=== PATIENT | female | born 1995 ===

== ENCOUNTER 2017-08-18 17:27 | Emergency (ER) | payer MEDICAID ==
[2017-08-18 17:55] VITALS: RESP 18
[2017-08-18 19:17] LABS: BASO # 0.02 K/mm3 (0.0-2.0); BASO % 0.1 % (0.0-3.0); EOS # 0.1 (0.0-0.7); EOS % 0.7 % (1.5-5.0); GRAN # 13.11 (1.4-6.5); GRAN % 79.6 % (50.0-68.0); HEMOGLOBIN 13.7 g/dL (12.0-16.0); LYMPH # 2.3 (1.2-3.4); LYMPH % 13.7 % (22.0-35.0); MEAN CELL VOLUME 81.2 fl (80.0-105.0); MEAN CORPUSCULAR HEMOGLOBIN 28.2 pg (25.0-35.0); MEAN CORPUSCULAR HGB CONC 34.8 g/dl (31.0-37.0); MEAN PLATELET VOLUME 10.2 fl (7.0-11.0); MONO % 5.9 % (1.0-6.0); RBC 4.85 10^6/uL (3.5-6.1); RED CELL DISTRIBUTION WIDTH 13.9 % (11.5-14.5); WHITE BLOOD COUNT 16.5 10^3/ul (4.5-11.0)
[2017-08-18 19:18] LABS: URINE BILIRUBIN NEGATIVE (NEGATIVE); URINE BLOOD SMALL (NEGATIVE); URINE GLUCOSE (UA) NEGATIVE (NEGATIVE); URINE LEUKOCYTE ESTERASE NEGATIVE Leu/uL (NEGATIVE); URINE PROTEIN NEGATIVE mg/dL (<30 mg/dL); URINE UROBILINOGEN 0.2 E.U./dL (<1 E.U./dL)
[2017-08-18 19:19] LABS: URINE APPEARANCE CLEAR (CLEAR); URINE COLOR YELLOW (YELLOW)
[2017-08-18 19:26] LABS: ALB/GLOB RATIO 1.1 (1.1-1.8); ALBUMIN 4.3 g/dL (3.0-4.8); ALT/SGPT 29 U/L (7-56); AST/SGOT 25 U/L (14-36); BLOOD UREA NITROGEN 7 mg/dL (7-21); CALCIUM 9.2 mg/dL (8.4-10.5); GFR AFRICAN-AMERICAN > 60; GFR NON-AFRICAN AMERICAN > 60
[2017-08-18 19:33] LABS: INR 1.17 (0.93-1.08); PARTIAL THROMBOPLASTIN TIME 29.9 Seconds (25.1-36.5); PROTHROMBIN TIME 13.4 SECONDS (9.4-12.5)
[2017-08-18 19:39] LABS: URINE BACTERIA FEW (NEG); URINE EPITHELIAL CELLS 0 - 2 /hpf (0-5)
--- NOTE | 2017-08-18 22:20 | ED PDOC ---
Arrival/HPI - General Chief Complaint: Dizziness/Lightheaded Time Seen by Provider: 08/18/17 18:14 Historian: Patient, Family - History of Present Illness Narrative History of Present Illness (Text): 22 y/o woman w/ no sig endorsed pmhx presents c/o 2-3 day sof increased dizziness/ occasional pressure like frontal headache/ malaise but denying URI like symptoms nor any dysuria/ nor n/v/diarrhea. + sick contacts with her baby niece whom reportedly suffreed URI sympotms the prior week. She denies nay menongococcal rash/nuchal rigidity nor history of menometrhagia/ nor focal neurological defeicits. 08/18/17 22:21 Time/Duration: < week Symptom Onset: Gradual Symptom Course: Unchanged Quality: Aching Past Medical History - Provider Review Nursing Documentation Reviewed: Yes - Cardiac Hx Cardiac Disorders: No - Pulmonary Hx Respiratory Disorders: Yes Hx Asthma: Yes - Neurological Hx Neurological Disorder: No - HEENT Hx HEENT Disorder: No - Renal Hx Renal Disorder: No - Endocrine/Metabolic Hx Endocrine Disorders: No - Hematological/Oncological Hx Blood Disorders: No - Integumentary Hx Dermatological Disorder: No - Musculoskeletal/Rheumatological Hx Musculoskeletal Disorders: No - Gastrointestinal Hx Gastrointestinal Disorders: No - Genitourinary/Gynecological Hx Genitourinary Disorders: No - Psychiatric Hx Psychophysiologic Disorder: No Hx Substance Use: No - Anesthesia Hx Anesthesia: No Family/Social History - Physician Review Nursing Documentation Reviewed: Yes Family/Social History: No Known Family HX Smoking Status: Light Smoker < 10 Cigarettes Daily Hx Alcohol Use: Yes Frequency of alcohol use: Socially Hx Substance Use: No Allergies/Home Meds Allergies/Adverse Reactions: Allergies amoxicillin Allergy (Verified 08/18/17 17:48) ANAPHYLAXIS Home Medications: Home Meds Medication Instructions Recorded Confirmed Albuterol Sulfate [Ventolin Hfa] 1 puff IH Q4 PRN 08/18/17 08/18/17 Review of Systems - Physician Review All systems were reviewed & negative as marked: Yes - Review of Systems Constitutional: Fatigue Eyes: Normal ENT: Normal Respiratory: Normal Cardiovascular: Normal Gastrointestinal: Normal Genitourinary Female: Normal Musculoskeletal: Normal Skin: Normal Neurological: Headache, Dizziness Endocrine: Normal Hemo/Lymphatic: Normal Psychiatric: Normal Physical Exam Vital Signs Reviewed: Yes Vital Signs Temp Pulse Resp BP Pulse Ox 08/18/17 17:50 100.2 F H 137 H 18 125/80 100 Temperature: Febrile Blood Pressure: Normal Pulse: Regular Respiratory Rate: Normal Appearance: Positive for: Well-Appearing, Non-Toxic, Comfortable Pain Distress: None Mental Status: Positive for: Alert and Oriented X 3 - Systems Exam Head: Present: Atraumatic, Normocephalic Pupils: Present: PERRL Extroacular Muscles: Present: EOMI Conjunctiva: Present: Normal Mouth: Present: Moist Mucous Membranes Neck: Present: Normal Range of Motion Respiratory/Chest: Present: Clear to Auscultation, Good Air Exchange. No: Respiratory Distress, Accessory Muscle Use Cardiovascular: Present: Regular Rate and Rhythm, Normal S1, S2. No: Murmurs Abdomen: No: Tenderness, Distention, Peritoneal Signs Back: Present: Normal Inspection Upper Extremity: Present: Normal Inspection. No: Cyanosis, Edema Lower Extremity: Present: Normal Inspection. No: Edema Neurological: Present: GCS=15, CN II-XII Intact, Speech Normal, Motor Func Grossly Intact, Normal Sensory Function, Normal Cerebellar Funct, Norm Deep Tendon Reflexes, Gait Normal, Memory Normal, Other (meningeal sign (-) ) Skin: Present: Warm, Dry, Normal Color. No: Rashes Psychiatric: Present: Alert, Oriented x 3, Normal Insight, Normal Concentration Medical Decision Making - Lab Interpretations Lab Results: 08/18/17 19:10 08/18/17 19:10 Lab Results 08/18/17 21:06: Influenza Typ A,B (EIA) Negative for flu a/b 08/18/17 19:10: Sodium 139, Potassium 3.7, Chloride 104, Carbon Dioxide 22, Anion Gap 17, BUN 7, Creatinine 0.5 L, Est GFR ( Amer) > 60, Est GFR (Non -Af Amer) > 60, Random Glucose 92, Calcium 9.2, Total Bilirubin 0.6, AST 25, ALT 29, Alkaline Phosphatase 94, Total Protein 8.3, Albumin 4.3, Globulin 4.0, Albumin/Globulin Ratio 1.1 08/18/17 19:10: PT 13.4 H, INR 1.17 H, APTT 29.9 08/18/17 19:10: WBC 16.5 H, RBC 4.85, Hgb 13.7, Hct 39.4, MCV 81.2, MCH 28.2, MCHC 34.8, RDW 13.9, Plt Count 239, MPV 10.2, Gran % 79.6 H, Lymph % (Auto) 13.7 L, Waller % (Auto) 5.9, Eos % (Auto) 0.7 L, Baso % (Auto) 0.1, Gran # 13.11 H , Lymph # (Auto) 2.3, Waller # (Auto) 1.0 H, Eos # (Auto) 0.1, Baso # (Auto) 0.02 08/18/17 18:40: Urine Color Yellow, Urine Appearance Clear, Urine pH 6.0, Ur Specific Bode[place] >= 1.030, Urine Protein Negative, Urine Glucose (UA) Negative, Urine Ketones Negative, Urine Blood Small H, Urine Nitrate Negative, Urine Bilirubin Negative, Urine Urobilinogen 0.2, Ur Leukocyte Esterase Negative, Urine RBC 10 - 15, Urine WBC 1 - 3, Ur Epithelial Cells 0 - 2, Urine Bacteria Few, Urine Other Mucus - RAD Interpretation Radiology Orders: 08/18/17 18:14 CHEST PORTABLE [RAD] Stat - Medication Orders Current Medication Orders: Discontinued Medications Acetaminophen (Tylenol 325mg Tab) 975 mg PO STAT STA Stop: 08/18/17 18:18 Last Admin: 08/18/17 18:32 Dose: 975 mg MAR Pain/Vitals Document 08/18/17 18:32 LA (Rec: 08/18/17 18:35 LA [id number]) Pain Reassessment Is This A Pain ReAssessment? No Sleep Is patient sleeping during reassessment? No Presence of Pain Presence of Pain Yes Pain Scale Used Pain Scale Used Numeric Location Pain Location Body Equalizer Operator Description Acute Intensity 6 Scale Used Numeric Lactated Ringer's 2,000 ml/ IV (SUPPLIES) 2,000 mls @ 5,388.66 mls/hr IV ONCE ONE PRN Reason: 60 ML/KG/HR Stop: 08/18/17 18:15 Last Admin: 08/18/17 18:40 Dose: 5,388.66 mls/hr eMAR Start Stop Document 08/18/17 18:40 LA (Rec: 08/18/17 18:41 LA [id number]) Intravenous Solution Start Date 08/18/17 Start Time 18:40 End Date 08/18/17 Ketorolac Tromethamine (Toradol) 15 mg IVP STAT STA Stop: 08/18/17 22:13 Disposition/Present on Arrival - Present on Arrival Any Indicators Present on Arrival: No History of DVT/PE: No History of Uncontrolled Diabetes: No Urinary Catheter: No History of Decub. Ulcer: No History Surgical Site Infection Following: None - Disposition Have Diagnosis and Disposition been Completed?: Yes Diagnosis: Viral syndrome, Headache Disposition: HOME/ ROUTINE Disposition Time: 22:31 Patient Plan: Discharge Condition: GOOD Discharge Instructions (ExitCare): Tension Headache, Viral Syndrome (DC) Print Language: ARMENIAN Additional Instructions: You have been diagnosed with a viral syndrome in light if niecy ercent sick contact with your sister's child. Please take the motrin alternating with tylenol for you rheadahce. DRink 2.5to 3.5 L of ater daily in order to avoid furtehr dizzienss and help with headache relief. Return f you begin suffering more romulo 3 days of fever. Prescriptions: Acetaminophen [Tylenol] 650 mg PO Q6 PRN #50 capsule PRN Reason: Fever >100.4 F Fluticasone Nasal [Flonase] 0.05 mg NS Q8 PRN 3 Days spr PRN Reason: Cough And Congestion Ibuprofen [Motrin Tab] 600 mg PO Q6 PRN #40 tab PRN Reason: Fever >100.4 F Referrals: PCP,NO [Primary Care Provider] - Follow up with primary Forms: [employer] (Niuean), WORK NOTE
[2017-08-19 02:17] VITALS: O2SAT 99
[2017-08-19 02:23] VITALS: BP 124/78; PULSE 102; TEMP 99.1
--- NOTE | 2017-08-19 08:44 | RAD ---
HISTORY: Sepsis Patient COMPARISON: No prior. FINDINGS: LUNGS: The lungs are well inflated and clear. PLEURA: No significant pleural effusion identified, no pneumothorax apparent. CARDIOVASCULAR: Normal. OSSEOUS STRUCTURES: No significant abnormalities. VISUALIZED UPPER ABDOMEN: Normal. OTHER FINDINGS: None. IMPRESSION: No active pulmonary disease.
--- NOTE | 2017-08-19 19:04 | CARD ---
APPROVED REPORT EKG Measurement Heart [id number] <Conclusion> Sinus tachycardia Otherwise normal ECG
== END 2017-08-18 22:50 | disposition home or self-care (01) ==
LOC: UNMERGE 17:27 → ED 17:27 → MERGE 17:27 → EDUNIT# 17:27 → ED 22:50
DX: B34.9 Viral infection, unspecified (principal); R51 Headache; F17.210 Nicotine dependence, cigarettes, uncomplicated
CPT/HCPCS: 71045; 80053; 81001; 85025; 85610; 85730; 87040; 87086; 87804; 93005; 96374; 99285; J1885; J7120

== ENCOUNTER 2017-12-23 23:06 | Emergency (ER) | payer SELFPAY ==
[2017-12-23 23:16] VITALS: BMI 39.2
[2017-12-23 23:18] VITALS: TEMP 98.2
--- NOTE | 2017-12-24 02:17 | ED PDOC ---
Arrival/HPI - General Chief Complaint: Upper Extremity Problem/Injury Time Seen by Provider: 12/24/17 00:52 Historian: Patient - History of Present Illness Narrative History of Present Illness (Text): 12/24/17 02:13 22-year-old female presents today with left wrist pain. Patient states prior to arrival she developed a shooting pain in the left wrist radiating to the left elbow. Patient denies any trauma or injury. Patient states if she holds her arm at rest she has no pain but if she turns the wrist she develops a shooting sensation in the arm. She denies any pain in the upper extremity. No medications were taken for pain at home. Patient denies numbness weakness or tingling in the extremity. No chest pain or shortness of breath. No other complaints Past Medical History - Provider Review Nursing Documentation Reviewed: Yes - Travel History Have you recently traveled outside [place] w/in the past 3 mons?: No - Infectious Disease Hx of Infectious Diseases: None - Cardiac Hx Cardiac Disorders: No - Pulmonary Hx Respiratory Disorders: Yes Hx Asthma: Yes - Neurological Hx Neurological Disorder: No - HEENT Hx HEENT Disorder: No - Renal Hx Renal Disorder: No - Endocrine/Metabolic Hx Endocrine Disorders: No - Hematological/Oncological Hx Blood Disorders: No - Integumentary Hx Dermatological Disorder: No - Musculoskeletal/Rheumatological Hx Musculoskeletal Disorders: No - Gastrointestinal Hx Gastrointestinal Disorders: No - Genitourinary/Gynecological Hx Genitourinary Disorders: No - Psychiatric Hx Psychophysiologic Disorder: No Hx Substance Use: No - Anesthesia Hx Anesthesia: No - Suicidal Assessment Feels Threatened In Home Enviroment: No Family/Social History - Physician Review Nursing Documentation Reviewed: Yes Family/Social History: Unknown Family HX Smoking Status: Light Smoker < 10 Cigarettes Daily Hx Alcohol Use: Yes Hx Substance Use: No Allergies/Home Meds Allergies/Adverse Reactions: Allergies amoxicillin Allergy (Verified 12/24/17 01:24) ANAPHYLAXIS penicillin G Allergy (Verified 12/23/17 23:16) ANAPHYLAXIS Home Medications: Home Meds Medication Instructions Recorded Confirmed Albuterol Sulfate [Albuterol Hfa] 0.09 mg IH Q6 PRN 02/20/15 01/14/16 DiphenhydrAMINE [Benadryl] 25 mg PO Q4H PRN 01/14/16 01/14/16 Diphenhydramine HCl [Anti-Itch] 1 applic TOP DAILY 01/14/16 01/14/16 Albuterol Sulfate [Ventolin Hfa] 1 puff IH Q4 PRN 08/18/17 08/18/17 Review of Systems - Review of Systems Constitutional: absent: Fatigue, Fevers Respiratory: absent: SOB, Cough Cardiovascular: absent: Chest Pain, Palpitations Gastrointestinal: absent: Abdominal Pain, Nausea, Vomiting Musculoskeletal: Arthralgias (left wrist pain/forearm pain) Psychiatric: absent: Anxiety, Depression Physical Exam Vital Signs Reviewed: Yes Vital Signs Temp Pulse Resp BP Pulse Ox 12/23/17 23:17 98.2 F 86 18 99/67 L 99 Temperature: Afebrile Blood Pressure: Normal Pulse: Regular Respiratory Rate: Normal Appearance: Positive for: Well-Appearing, Non-Toxic, Comfortable Pain Distress: None Mental Status: Positive for: Alert and Oriented X 3 - Systems Exam Head: Present: Atraumatic Mouth: Present: Moist Mucous Membranes Neck: Present: Normal Range of Motion Respiratory/Chest: Present: Clear to Auscultation, Good Air Exchange. No: Respiratory Distress, Accessory Muscle Use Cardiovascular: Present: Regular Rate and Rhythm, Normal S1, S2. No: Murmurs Upper Extremity: Present: Normal Inspection, Normal ROM, NORMAL PULSES, Tenderness (+ ttp over wrist and forearm; no edema, no erythema; no ecchymosis. ), Neurovascularly Intact, Capillary Refill < 2s. No: Cyanosis, Edema, Swelling , Erythema Neurological: Present: GCS=15, Speech Normal Skin: Present: Warm, Dry, Normal Color. No: Rashes Psychiatric: Present: Alert, Oriented x 3 Medical Decision Making ED Course and Treatment: 12/24/17 02:18 Patient nontoxic well-appearing in no distress with stable vital signs X-rays of the left wrist; no fracture xrays of the left forearm; no fracture duplex of left upper arm; no dvt pt refused toradol. motrin given po Patient given sissy wrap; I discussed all results with patient advised to followup with the orthopedist for the next 2 days. Return if symptoms worsen persist or new symptoms develop Patient verbalizes understanding of discharge instructions and need for immediate followup. all aspects of this case were discussed the attending of record. Impression: wrist pain, arm pain Motrin every 6 hours as needed for pain Rest, ice, compression, elevation Followup with the orthopedist within the next 2 days Followup with primary care physician within the next 2 days Return if any other concerning symptoms develop - RAD Interpretation Radiology Orders: 12/24/17 00:52 FOREARM LEFT [RAD] Stat WRIST, LEFT 3 VIEWS [RAD] Stat DUPLEX UPPER EXTRM VEIN LEFT [US] Stat - Medication Orders Current Medication Orders: Discontinued Medications Ketorolac Tromethamine (Toradol) 60 mg IM STAT STA Stop: 12/24/17 01:22 Last Admin: 12/24/17 01:30 Dose: Not Given Non-Admin Reason: Patient Refused Disposition/Present on Arrival - Present on Arrival Any Indicators Present on Arrival: No History of DVT/PE: No History of Uncontrolled Diabetes: No Urinary Catheter: No History of Decub. Ulcer: No History Surgical Site Infection Following: None - Disposition Have Diagnosis and Disposition been Completed?: Yes Diagnosis: Wrist pain, Arm pain Disposition: HOME/ ROUTINE Disposition Time: 02:12 Patient Plan: Discharge Condition: GOOD Discharge Instructions (ExitCare): Muscle and Bone Pain (DC) Additional Instructions: Motrin every 6 hours as needed for pain Rest, ice, compression, elevation Followup with the orthopedist within the next 2 days Followup with primary care physician within the next 2 days Return if any other concerning symptoms develop Referrals: Ruthy Kendrick MD [Staff Provider] - Follow up with primary [facility] [Outside] - Follow up with primary [facility] [Outside] - Follow up with primary Cici Danielson MD [Medical Doctor] - Follow up with primary Forms: [email or web address] (Chinese), WORK NOTE
[2017-12-24 02:23] VITALS: BP 102/68; PULSE 68; RESP 17; O2SAT 100
--- NOTE | 2017-12-24 11:47 | RAD ---
Date of service: 12/24/2017 PROCEDURE: Left Wrist Radiographs. HISTORY: left wrist pain COMPARISON: None. FINDINGS: BONES: Normal. No fracture. JOINTS: Normal. No dislocation. SOFT TISSUES: Normal. OTHER FINDINGS: None. IMPRESSION: Normal left wrist radiographs.
--- NOTE | 2017-12-24 11:47 | RAD ---
Date of service: 12/24/2017 PROCEDURE: Radiographs of the Left Forearm HISTORY: left forearm pain COMPARISON: None available. TECHNIQUE: Frontal and lateral views obtained. FINDINGS: BONES: No fracture or destructive lesion. JOINT SPACES: Unremarkable. OTHER FINDINGS: None. IMPRESSION: Unremarkable radiographs of the left forearm.
--- NOTE | 2017-12-24 19:05 | US ---
PROCEDURE: Left upper extremity venous ultrasound HISTORY: Arm pain and swelling. Evaluate for deep venous thrombosis. PHYSICIAN(S): Ryder Plunkett MD. FINDINGS: The visualized leftinternal jugular vein is sonographically normal and compressible. No evidence of obstruction or thrombus is seen. The visualized segments of the left subclavian vein are patent with normal waveforms. No sonographic evidence of obstruction or thrombosis is seen. The visualized deep venous system of the proximal leftupper extremity is sonographically normal and compressible. IMPRESSION: 1. No sonographic evidence for deep venous thrombosis in the visualized segments of the left upper extremity.
== END 2017-12-24 02:18 | disposition home or self-care (01) ==
LOC: ED 23:06
DX: M25.532 Pain in left wrist (principal); M79.602 Pain in left arm; F17.210 Nicotine dependence, cigarettes, uncomplicated

== ENCOUNTER 2018-07-08 21:10 | Emergency (ER) | payer SELFPAY ==
[2018-07-08 21:16] VITALS: BMI 38.0
[2018-07-08 21:19] VITALS: TEMP 98.3
[2018-07-08] MEDS ORDERED: Sodium Chloride 0.9% 1,000 ML IV STA (22:41)
[2018-07-08 22:48] LABS: BASO # 0.02 K/mm3 (0.0-2.0); BASO % 0.3 % (0.0-3.0); EOS # 0.3 (0.0-0.7); EOS % 3.7 % (1.5-5.0); HEMOGLOBIN 13.8 g/dL (12.0-16.0); LYMPH # 2.4 (1.2-3.4); LYMPH % 34.3 % (22.0-35.0); MEAN CELL VOLUME 81.7 fl (80.0-105.0); MEAN CORPUSCULAR HGB CONC 34.3 g/dl (31.0-37.0); MEAN PLATELET VOLUME 11.2 fl (7.0-11.0); MONO # 0.6 (0.1-0.6); MONO % 8.8 % (1.0-6.0); RBC 4.92 10^6/uL (3.5-6.1); RED CELL DISTRIBUTION WIDTH 13.5 % (11.5-14.5); WHITE BLOOD COUNT 7.1 10^3/uL (4.5-11.0)
--- NOTE | 2018-07-08 22:49 | ED PDOC ---
Arrival/HPI - General Chief Complaint: Shortness Of Breath Time Seen by Provider: 07/08/18 21:57 Historian: Patient - History of Present Illness Narrative History of Present Illness (Text): 07/08/18 22:45 23 F with pmh of Asthma presents with cc of chest tightness worse w/cough and sob since yesterday. Patient reports that she used her asthma pump today but failed to relieve her chest tightness. Patient also complains of runny nose and body aches. Patient denies any fevers, chills, headache, dizziness, dyspnea on exertion, abdominal pain, nausea, vomiting, diarrhea, back pain, neck pain, or any other complaint. 07/10/18 21:21 Time/Duration: 24 hours Symptom Onset: Sudden Symptom Course: Unchanged Activities at Onset: Light Context: Home Past Medical History - Provider Review Nursing Documentation Reviewed: Yes - Infectious Disease Hx of Infectious Diseases: None - Cardiac Hx Cardiac Disorders: No - Pulmonary Hx Respiratory Disorders: Yes Hx Asthma: Yes - Neurological Hx Neurological Disorder: No - HEENT Hx HEENT Disorder: No - Renal Hx Renal Disorder: No - Endocrine/Metabolic Hx Endocrine Disorders: No - Hematological/Oncological Hx Blood Disorders: No - Integumentary Hx Dermatological Disorder: No - Musculoskeletal/Rheumatological Hx Musculoskeletal Disorders: No - Gastrointestinal Hx Gastrointestinal Disorders: No - Genitourinary/Gynecological Hx Genitourinary Disorders: No - Psychiatric Hx Psychophysiologic Disorder: No Hx Substance Use: No - Anesthesia Hx Anesthesia: No - Suicidal Assessment Feels Threatened In Home Enviroment: No Family/Social History - Physician Review Nursing Documentation Reviewed: Yes Family/Social History: No Known Family HX Smoking Status: Light Smoker < 10 Cigarettes Daily Hx Alcohol Use: Yes Hx Substance Use: No Allergies/Home Meds Allergies/Adverse Reactions: Allergies amoxicillin Allergy (Verified 07/08/18 21:16) ANAPHYLAXIS penicillin G Allergy (Verified 07/08/18 21:16) ANAPHYLAXIS Home Medications: Home Meds Medication Instructions Recorded Confirmed Albuterol Sulfate [Albuterol Hfa] 0.09 mg IH Q6 PRN 02/20/15 07/08/18 Albuterol Sulfate [Ventolin Hfa] 1 puff IH Q4 PRN 08/18/17 07/08/18 Review of Systems - Physician Review All systems were reviewed & negative as marked: Yes - Review of Systems Constitutional: Normal Eyes: Normal ENT: Rhinorrhea Respiratory: Cough. absent: Wheezing Cardiovascular: Chest Pain Gastrointestinal: Normal Genitourinary Female: Normal Musculoskeletal: Myalgias Skin: Normal Neurological: Normal Endocrine: Normal Hemo/Lymphatic: Normal Psychiatric: Normal Physical Exam - Physical Exam Narrative Physical Exam (Text): 07/08/18 22:55 Gen: VS reviewed, alert, well developed, well nourished, nontoxic, mild distress Eye: EOMI, PERRL ENT: Post nasal drip Neck: no JVD, supple, no adenopathy CV: Rapid heart rate no rubs, no murmur, S1, S2 Pulm: no distress, clear to auscultation, no wheeze, no rhonchi, breath sounds equal, no rales Abd: soft, nontender, no guarding, no rebound, no rigidity Ext: no edema Skin: good color, no rash, no cyanosis Psych: responds appropriately to questions, normal affect Neuro: oriented x3, CN2-12 intact grossly, motor intact, sensation intact Vital Signs Reviewed: Yes Vital Signs Temp Pulse Pulse Resp BP BP Pulse Ox 07/08/18 21:52 105 H 21 109/70 98 07/08/18 21:18 98.3 F 137 H 21 115/67 96 Temperature: Afebrile Blood Pressure: Normal Pulse: Tachycardic Respiratory Rate: Normal Appearance: Positive for: Well-Appearing, Non-Toxic, Comfortable Pain Distress: Mild Mental Status: Positive for: Alert and Oriented X 3 Medical Decision Making ED Course and Treatment: 07/10/18 21:21 later note: at the time of disposition, the patient was noted to be tachycardic. she was not overtly short of breath, she did not feel dizzy. my plan was to admit to the hospital but patient did not want to stay. an ambulatory heart rate was done and the patient's heart rate elevated to 130. at the time of disposition, the patient signed out against medical advice. - RAD Interpretation Straight Knife Cutter Machine: ED Physician - EKG Interpretation EKG Interpretation (Text): 07/08/18 23:01 2133: ekg my read: sinus tachycardia at 114 bpm, nml qrs, nml axis, no acute sttw abn Interpreted by ED Physician: Yes - Medication Orders Current Medication Orders: Sodium Chloride (Sodium Chloride 0.9%) 1,000 mls @ 999 mls/hr IV .Q1H1M STA Stop: 07/08/18 23:41 - PA / PAINT FACTORY WORKER / Resident Statement MD/DO has reviewed & agrees with the documentation as recorded. - Scribe Statement The provider has reviewed the documentation as recorded by the Yenniibparamjit Hansen All medical record entries made by the Scribe were at my direction and personally dictated by me. I have reviewed the chart and agree that the record accurately reflects my personal performance of the history, physical exam, medical decision making, and the department course for this patient. I have also personally directed, reviewed, and agree with the discharge instructions and disposition. Disposition/Present on Arrival - Present on Arrival Any Indicators Present on Arrival: No History of DVT/PE: No History of Uncontrolled Diabetes: No Urinary Catheter: No History of Decub. Ulcer: No History Surgical Site Infection Following: None - Disposition Have Diagnosis and Disposition been Completed?: Yes Diagnosis: Tachycardia Disposition: AGAINST MEDICAL ADVICE Condition: GUARDED Discharge Instructions (ExitCare): Tachycardia Additional Instructions: return for any new or worsening symptoms. Referrals: [facility] [Outside] - Follow up with primary PCP,NO [Primary Care Provider] - Follow up with primary Ryder Song MD [Staff Provider] - Follow up with primary Forms: [employer] (Zambian), WORK NOTE
[2018-07-08 23:21] LABS: ALBUMIN 3.9 g/dL (3.0-4.8); ALT/SGPT 10 U/L (7-56); AST/SGOT 23 U/L (14-36); BLOOD UREA NITROGEN 7 mg/dL (7-21); GFR NON-AFRICAN AMERICAN > 60
[2018-07-08 23:32] LABS: TROPONIN I < 0.01 ng/mL
[2018-07-09 01:04] VITALS: BP 108/67; PULSE 110; RESP 18; O2SAT 96
--- NOTE | 2018-07-09 16:59 | CARD ---
APPROVED REPORT Date of service: 07/08/2018 EKG Measurement Heart [id number] <Conclusion> Sinus tachycardia Otherwise normal ECG
== END 2018-07-09 02:16 | disposition left against medical advice (07) ==
LOC: ED 21:10
DX: R00.0 Tachycardia, unspecified (principal); J45.909 Unspecified asthma, uncomplicated; F17.210 Nicotine dependence, cigarettes, uncomplicated
CPT/HCPCS: 80053; 81025; 84443; 84484; 85025; 85378; 87804; 93005; 99285; J7030

== ENCOUNTER 2018-07-10 21:08 | Observation (INO) | payer MEDICAID, OTHER ==
[2018-07-10 21:08] VITALS: BMI 38.0
--- NOTE | 2018-07-10 21:21 | ED PDOC ---
Arrival/HPI - General Time Seen by Provider: 07/10/18 21:14 Historian: Patient - History of Present Illness Narrative History of Present Illness (Text): 07/10/18 21:22 23 year old female, with past medical history of asthma, presents to emergency department with complaints of shortness of breath with associated wheezing since Friday. Patient notes she was at the ER Friday night for the same complaints, but had no significant improvement since then. Patient denies fevers, chills, chest pain, nausea, vomiting, or any other complaints. Time/Duration: Other (Friday) Symptom Onset: Gradual Symptom Course: Unchanged Activities at Onset: Light Context: Home Past Medical History - Provider Review Nursing Documentation Reviewed: Yes - Infectious Disease Hx of Infectious Diseases: None - Cardiac Hx Cardiac Disorders: No - Pulmonary Hx Respiratory Disorders: Yes Hx Asthma: Yes - Neurological Hx Neurological Disorder: No - HEENT Hx HEENT Disorder: No - Renal Hx Renal Disorder: No - Endocrine/Metabolic Hx Endocrine Disorders: No - Hematological/Oncological Hx Blood Disorders: No - Integumentary Hx Dermatological Disorder: No - Musculoskeletal/Rheumatological Hx Musculoskeletal Disorders: No - Gastrointestinal Hx Gastrointestinal Disorders: No - Genitourinary/Gynecological Hx Genitourinary Disorders: No - Psychiatric Hx Psychophysiologic Disorder: No Hx Substance Use: No - Anesthesia Hx Anesthesia: No - Suicidal Assessment Feels Threatened In Home Enviroment: No Family/Social History - Physician Review Nursing Documentation Reviewed: Yes Family/Social History: Unknown Family HX Smoking Status: Light Smoker < 10 Cigarettes Daily Hx Alcohol Use: Yes Hx Substance Use: No Allergies/Home Meds Allergies/Adverse Reactions: Allergies amoxicillin Allergy (Verified 07/10/18 21:23) ANAPHYLAXIS penicillin G Allergy (Verified 07/10/18 21:23) ANAPHYLAXIS Home Medications: Home Meds Medication Instructions Recorded Confirmed Albuterol Sulfate [Albuterol Hfa] 0.09 mg IH Q6 PRN 02/20/15 07/08/18 Albuterol Sulfate [Ventolin Hfa] 1 puff IH Q4 PRN 08/18/17 07/08/18 Review of Systems - Physician Review All systems were reviewed & negative as marked: Yes - Review of Systems Constitutional: absent: Fevers Respiratory: SOB (since Friday ), Wheezing Cardiovascular: absent: Chest Pain Gastrointestinal: absent: Abdominal Pain, Diarrhea, Nausea, Vomiting Genitourinary Female: absent: Urine Output Changes Musculoskeletal: absent: Back Pain, Neck Pain Skin: absent: Rash Neurological: absent: Headache Physical Exam - Physical Exam Narrative Physical Exam (Text): 07/10/18 21:29 Gen: VS reviewed, alert, well developed, well nourished, nontoxic, mild distress Eye: EOMI, PERRL Neck: no JVD, supple, no adenopathy CV: tachycardic, regular rhythm, no rubs,no murmur, S1, S2 Pulm: no accessory muscle use, diffuse scant bilateral expiratory wheezes Abd: soft, nontender, no guarding, no rebound, no rigidity Ext: no edema Skin: good color, no rash, no cyanosis Psych: responds appropriately to questions, normal affect Neuro: oriented x3, CN2-12 intact grossly, motor intact, sensation intact Vital Signs Reviewed: Yes Temperature: Afebrile Blood Pressure: Normal Pulse: Tachycardic Respiratory Rate: Tachypneic Appearance: Positive for: Well-Appearing, Non-Toxic, Comfortable Pain Distress: None Mental Status: Positive for: Alert and Oriented X 3 Medical Decision Making ED Course and Treatment: 07/10/18 21:31 Impression: 23 year old female presents to emergency department for shortness of breath since Friday with associated wheezing. Plan: -- Reassess and disposition Prior Visits: Notes and results from previous visits were reviewed. Progress Notes: 07/10/18 11:30 patient is less tachypneic and appears more comfortable, there is less wheezing on physical exam but the patient is still tachycardic despite IVF. I ordered xopenex as to minimize the stimulant effect on HR as opposed to albuterol. 07/11/18 00:07 resident aware of admit 07/11/18 02:29 - EKG Interpretation EKG Interpretation (Text): 07/11/18 00:26 2122: nsr at 97 bpm, nml qrs, nm laxis, no acute sttw abn Interpreted by ED Physician: Yes - Scribe Statement The provider has reviewed the documentation as recorded by the Scribe Alvarez Saenz All medical record entries made by the Scribe were at my direction and personally dictated by me. I have reviewed the chart and agree that the record accurately reflects my personal performance of the history, physical exam, medical decision making, and the department course for this patient. I have also personally directed, reviewed, and agree with the discharge instructions and disposition. Disposition/Present on Arrival - Present on Arrival Any Indicators Present on Arrival: No History of DVT/PE: No History of Uncontrolled Diabetes: No Urinary Catheter: No History Surgical Site Infection Following: None - Disposition Have Diagnosis and Disposition been Completed?: Yes Diagnosis: Tachycardia, Asthma exacerbation Disposition: HOSPITALIZED Disposition Time: 00:08 Patient Plan: Observation Patient Problems: Current Active Problems Problem Status Onset Tachycardia Acute Asthma exacerbation Acute Condition: STABLE
[2018-07-10] MEDS ORDERED: Levalbuterol 1.25 MG/3 ML Inhal Soln UD ONE (21:22)
[2018-07-10] MEDS ORDERED: Levalbuterol 1.25 MG/3 ML Inhal Soln UD IH STA (21:28)
[2018-07-10] MEDS ORDERED: Sodium Chloride 0.9% 1,000 ML IV STA (22:08)
[2018-07-10 23:28] LABS: BASO # 0.02 K/mm3 (0.0-2.0); BASO % 0.2 % (0.0-3.0); EOS # 0.5 (0.0-0.7); EOS % 4.5 % (1.5-5.0); HEMOGLOBIN 13.3 g/dL (12.0-16.0); LYMPH # 4.3 (1.2-3.4); LYMPH % 40.8 % (22.0-35.0); MEAN CELL VOLUME 82.4 fl (80.0-105.0); MEAN CORPUSCULAR HEMOGLOBIN 27.6 pg (25.0-35.0); MEAN CORPUSCULAR HGB CONC 33.5 g/dl (31.0-37.0); MEAN PLATELET VOLUME 10.7 fl (7.0-11.0); MONO # 0.7 (0.1-0.6); MONO % 6.5 % (1.0-6.0); RBC 4.82 10^6/uL (3.5-6.1); RED CELL DISTRIBUTION WIDTH 13.1 % (11.5-14.5); WHITE BLOOD COUNT 10.6 10^3/uL (4.5-11.0)
[2018-07-10 23:55] LABS: BLOOD UREA NITROGEN 7 mg/dL (7-21); GFR NON-AFRICAN AMERICAN > 60
[2018-07-11] MEDS ORDERED: Potassium Chloride 20 mEq ER Tab PO STA (00:04)
--- NOTE | 2018-07-11 00:13 | CP.PCM.HP ---
<Liliana Guthrie L - Last Filed: 07/11/18 01:03> History of Present Illness - History of Present Illness History of Present Illness: Resident History & Physical for Hospitalist Service Patient is a 23 year old female with past medical history of asthma (no previous intubations) and obesity presenting with chief complaint of nonproductive cough and shortness of breath which began five days ago. Patient states that she used her home albuterol with no relief. Patient also presented to the ED two days ago with the same presentation however signed out against medical advice. Patient wakes up twice a week due to shortness of breath. She admits to chest wall discomfort and rib pain whenever she coughs. She typically uses her inhaler twice during the day. Denies any recent illnesses or sick contacts. Denies fevers, chills, palpitations, nausea, vomiting, abdominal pain, diarrhea, dysuria. PMH: asthma, obesity PSH: denies SHx: smokes 3 cigarettes per day for the past 10 years, denies alcohol or illicit drug use FHx: mother and father have asthma Allergies: amoxicillin, penicillin G PMD: none Present on Admission - Present on Admission Any Indicators Present on Admission: No Review of Systems - Review of Systems All systems: reviewed and no additional remarkable complaints except (as stated in HPI) Past Patient History - Infectious Disease Hx of Infectious Diseases: None - Past Social History Smoking Status: Light Smoker < 10 Cigarettes Daily - CARDIAC Hx Cardiac Disorders: No - PULMONARY Hx Respiratory Disorders: Yes Hx Asthma: Yes - NEUROLOGICAL Hx Neurological Disorder: No - HEENT Hx HEENT Problems: No - RENAL Hx Chronic Kidney Disease: No - ENDOCRINE/METABOLIC Hx Endocrine Disorders: No - HEMATOLOGICAL/ONCOLOGICAL Hx Blood Disorders: No - INTEGUMENTARY Hx Dermatological Problems: No - MUSCULOSKELETAL/RHEUMATOLOGICAL Hx Musculoskeletal Disorders: No - GASTROINTESTINAL Hx Gastrointestinal Disorders: No - GENITOURINARY/GYNECOLOGICAL Hx Genitourinary Disorders: No - PSYCHIATRIC Hx Psychophysiologic Disorder: No Hx Substance Use: No - SURGICAL HISTORY Hx Surgeries: No - ANESTHESIA Hx Anesthesia: No Meds Allergies/Adverse Reactions: Allergies Allergy/AdvReac Type Severity Reaction Status Date / Time amoxicillin Allergy ANAPHYLAXIS Verified 07/10/18 21:23 penicillin G Allergy ANAPHYLAXIS Verified 07/10/18 21:23 Physical Exam - Constitutional Appears: Well, Non-toxic, No Acute Distress - Head Exam Head Exam: ATRAUMATIC, NORMOCEPHALIC - Eye Exam Eye Exam: EOMI, Normal appearance, PERRL - ENT Exam ENT Exam: Mucous Membranes Moist - Respiratory Exam Respiratory Exam: Wheezes. absent: Accessory Muscle Use, Rales, Rhonchi, Respi ratory Distress - Cardiovascular Exam Cardiovascular Exam: REGULAR RHYTHM, +S1, +S2. absent: Tachycardia, Systolic Murmur - GI/Abdominal Exam GI & Abdominal Exam: Normal Bowel Sounds, Soft. absent: Distended, Firm, Guard ing, Rebound, Rigid, Tenderness - Extremities Exam Extremities exam: Positive for: normal capillary refill, normal inspection, pedal pulses present. Negative for: pedal edema - Neurological Exam Neurological exam: Alert, CN II-XII Intact, Oriented x3 - Psychiatric Exam Psychiatric exam: Normal Affect, Normal Mood - Skin Skin Exam: Dry, Intact, Warm Results - Vital Signs Recent Vital Signs: Last Vital Signs Temp 98 F 07/10/18 21:18 Pulse 100 H 07/10/18 21:18 Resp BP 127/78 07/10/18 21:18 Pulse Ox 100 07/10/18 21:18 - Labs Result Diagrams: 07/10/18 23:10 07/10/18 23:10 Labs: Laboratory Results - last 24 hr 07/10/18 07/10/18 23:10 23:10 WBC 10.6 D RBC 4.82 Hgb 13.3 Hct 39.7 MCV 82.4 MCH 27.6 MCHC 33.5 RDW 13.1 Plt Count 263 MPV 10.7 Neut % (Auto) 48.0 L Lymph % (Auto) 40.8 H Atkinson % (Auto) 6.5 H Eos % (Auto) 4.5 Baso % (Auto) 0.2 Lymph # (Auto) 4.3 H Atkinson # (Auto) 0.7 H Eos # (Auto) 0.5 Baso # (Auto) 0.02 Absolute Neuts (auto) 5.09 Sodium 139 Potassium 3.3 L Chloride 105 Carbon Dioxide 24 Anion Gap 13 BUN 7 Creatinine 0.5 L Est GFR ( Amer) > 60 Est GFR (Non-Af Amer) > 60 Random Glucose 94 Calcium 9.0 Assessment & Plan - Assessment and Plan (Free Text) Assessment: Patient is a 23 year old female with past medical history of asthma (no previous intubations) and obesity presenting with acute exacerbation of asthma. Plan: Acute exacerbation of asthma - CXR - Duonebs Q6H/Q2H PRN - s/p 60 mg prednisone in ED - prednisone 40 mg PO daily Tobacco abuse - cessation counseling - nicotine patch Hypokalemia - monitor and replete PPX - SCDs Case reviewed with Dr. Lance Guthrie PGY-1 <Radha Lucas - Last Filed: 07/11/18 19:29> Results - Vital Signs Recent Vital Signs: Last Vital Signs Temp 98.4 F 07/11/18 08:54 Pulse 72 07/11/18 08:54 Resp 18 07/11/18 08:54 BP 140/75 07/11/18 08:54 Pulse Ox 94 L 07/11/18 08:54 - Labs Result Diagrams: 07/10/18 23:10 07/10/18 23:10 Labs: Laboratory Results - last 24 hr 07/10/18 07/10/18 07/11/18 23:10 23:10 00:00 WBC 10.6 D RBC 4.82 Hgb 13.3 Hct 39.7 MCV 82.4 MCH 27.6 MCHC 33.5 RDW 13.1 Plt Count 263 MPV 10.7 Neut % (Auto) 48.0 L Lymph % (Auto) 40.8 H Atkinson % (Auto) 6.5 H Eos % (Auto) 4.5 Baso % (Auto) 0.2 Lymph # (Auto) 4.3 H Atkinson # (Auto) 0.7 H Eos # (Auto) 0.5 Baso # (Auto) 0.02 Absolute Neuts (auto) 5.09 Sodium 139 Potassium 3.3 L Chloride 105 Carbon Dioxide 24 Anion Gap 13 BUN 7 Creatinine 0.5 L Est GFR ( Amer) > 60 Est GFR (Non-Af Amer) > 60 Random Glucose 94 Calcium 9.0 Magnesium 2.0 Lactate Dehydrogenase Total Creatine Kinase CK-MB (CK-2) CK-MB (CK-2) % Troponin I 07/11/18 05:00 WBC RBC Hgb Hct MCV MCH MCHC RDW Plt Count MPV Neut % (Auto) Lymph % (Auto) Atkinson % (Auto) Eos % (Auto) Baso % (Auto) Lymph # (Auto) Atkinson # (Auto) Eos # (Auto) Baso # (Auto) Absolute Neuts (auto) Sodium Potassium Chloride Carbon Dioxide Anion Gap BUN Creatinine Est GFR ( Amer) Est GFR (Non-Af Amer) Random Glucose Calcium Magnesium Lactate Dehydrogenase 568 Total Creatine Kinase 291 H CK-MB (CK-2) 0.7 CK-MB (CK-2) % Cancelled Troponin I < 0.01 Attending/Attestation - Attestation I have personally seen and examined this patient.: Yes I have fully participated in the care of the patient.: Yes I have reviewed all pertinent clinical information: Yes Notes (Text): 07/11/18 19:28 Seen and examined. discussed with resident. Add wellbutrin for anxiety. Change prednisone to solu-medrol. Add pulmicort.
[2018-07-11] MEDS ORDERED: Albuterol-Ipratrop 3 mg / 0.5 (3 ml) UD IH PRN (00:31)
[2018-07-11] MEDS ORDERED: Pneumococcal 23-Valent Vaccine IM ONE (05:40)
[2018-07-11] MEDS ORDERED: Influenza Vaccine 60 mcg/0.5 mL SYR (4YR UP) IM ONE (05:40)
[2018-07-11 07:19] LABS: TROPONIN I < 0.01 ng/mL
[2018-07-11 07:33] LABS: CK-MB 0.7 ng/mL (0.0-3.6)
[2018-07-11] MEDS ORDERED: Budesonide 0.5 mg/2 ml Inhal Susp UD IH SCH (08:00)
[2018-07-11] MEDS: Albuterol-Ipratrop 3 mg / 0.5 (3 ml) UD IH SCH ×2 (08:04→13:43)
[2018-07-11 08:55] VITALS: BP 140/75; PULSE 72; RESP 18; TEMP 98.4; O2SAT 94
[2018-07-11] MEDS ORDERED: buPROPion 300 mg/24 Hours XL Tab PO SCH (10:00)
--- NOTE | 2018-07-11 13:53 | CP.PCM.DIS ---
<Katrina Cavazos - Last Filed: 07/11/18 14:27> Provider - Provider Date of Admission: 07/11/18 00:09 Attending physician: Nabila Will MD Time Spent in preparation of Discharge (in minutes): 45 Diagnosis - Discharge Diagnosis (1) Asthma exacerbation Status: Acute (2) Tachycardia Status: Chronic Hospital Course - Lab Results Lab Results: Most Recent Lab Values WBC 10.6 10^3/uL (4.5-11.0) D 07/10/18 23:10 RBC 4.82 10^6/uL (3.5-6.1) 07/10/18 23:10 Hgb 13.3 g/dL (12.0-16.0) 07/10/18 23:10 Hct 39.7 % (36.0-48.0) 07/10/18 23:10 MCV 82.4 fl (80.0-105.0) 07/10/18 23:10 MCH 27.6 pg (25.0-35.0) 07/10/18 23:10 MCHC 33.5 g/dl (31.0-37.0) 07/10/18 23:10 RDW 13.1 % (11.5-14.5) 07/10/18 23:10 Plt Count 263 10^3/uL (120.0-450.0) 07/10/18 23:10 MPV 10.7 fl (7.0-11.0) 07/10/18 23:10 Neut % (Auto) 48.0 % (50.0-68.0) L 07/10/18 23:10 Lymph % (Auto) 40.8 % (22.0-35.0) H 07/10/18 23:10 Desha % (Auto) 6.5 % (1.0-6.0) H 07/10/18 23:10 Eos % (Auto) 4.5 % (1.5-5.0) 07/10/18 23:10 Baso % (Auto) 0.2 % (0.0-3.0) 07/10/18 23:10 Lymph # (Auto) 4.3 (1.2-3.4) H 07/10/18 23:10 Desha # (Auto) 0.7 (0.1-0.6) H 07/10/18 23:10 Eos # (Auto) 0.5 (0.0-0.7) 07/10/18 23:10 Baso # (Auto) 0.02 K/mm3 (0.0-2.0) 07/10/18 23:10 Absolute Neuts (auto) 5.09 (1.4-6.5) 07/10/18 23:10 Sodium 139 mmol/L (132-148) 07/10/18 23:10 Potassium 3.3 mmol/L (3.6-5.0) L 07/10/18 23:10 Chloride 105 mmol/L (98-107) 07/10/18 23:10 Carbon Dioxide 24 mmol/L (21-33) 07/10/18 23:10 Anion Gap 13 (10-20) 07/10/18 23:10 BUN 7 mg/dL (7-21) 07/10/18 23:10 Creatinine 0.5 mg/dl (0.7-1.2) L 07/10/18 23:10 Est GFR ( Amer) > 60 07/10/18 23:10 Est GFR (Non-Af Amer) > 60 07/10/18 23:10 Random Glucose 94 mg/dL (70-110) 07/10/18 23:10 Calcium 9.0 mg/dL (8.4-10.5) 07/10/18 23:10 Magnesium 2.0 mg/dL (1.7-2.2) 07/11/18 00:00 Lactate Dehydrogenase 568 U/L (333-699) 07/11/18 05:00 Total Creatine Kinase 291 U/L (35-230) H 07/11/18 05:00 CK-MB (CK-2) 0.7 ng/mL (0.0-3.6) 07/11/18 05:00 CK-MB (CK-2) % Cancelled 07/11/18 05:00 Troponin I < 0.01 ng/mL 07/11/18 05:00 - Hospital Course Hospital Course: Upon Admission: 23 year old female with past medical history of asthma (no previous intubations) and obesity presenting with chief complaint of nonproductive cough and shortness of breath which began five days ago. Patient states that she used her home albuterol with no relief. Patient also presented to the ED two days ago with the same presentation however signed out against medical advice. Patient wakes up twice a week due to shortness of breath. She admits to chest wall discomfort and rib pain whenever she coughs. She typically uses her inhaler twice during the day. Denies any recent illnesses or sick contacts. Denies fevers, chills, palpitations, nausea, vomiting, abdominal pain, diarrhea, dysuria. Hospital Course: Pt was treated in ED with oral prednisone, fluid bolus and xopenex treatment. Pt was subsequently admitted. Upon interview in the am, pt reported significant improvement and resolution of symptoms. Pt did not have fever, chills, elevated temperature, leukocytosis. Upon Discharge: Pt is doing well, denying 12 point ROS. Cough/SOB have resolved. She is afebrile, hemodynamically stable. Labs wnl. She tolerated 6 minute walk test, and was saturating at 95% throughout entire walk. She was instructed and advised on smoking cessation. She was also started on new inhaled corticosteroid, tessalon perles, and prednisone taper upon discharge. Pt instructed on close outpatient followup and to return to ED if symptoms return or if she experience new symptoms. Discharge Exam - Head Exam Head Exam: ATRAUMATIC, NORMOCEPHALIC - Eye Exam Eye Exam: EOMI, Normal appearance Pupil Exam: PERRL - ENT Exam ENT Exam: Mucous Membranes Dry, Mucous Membranes Moist - Neck Exam Neck exam: Normal Inspection - Respiratory Exam Respiratory Exam: NORMAL BREATHING PATTERN, UNREMARKABLE - Cardiovascular Exam Cardiovascular Exam: REGULAR RHYTHM, +S1, +S2 - GI/Abdominal Exam GI & Abdominal Exam: Soft. absent: Tenderness - Extremities Exam Extremities exam: normal inspection - Back Exam Back exam: NORMAL INSPECTION - Neurological Exam Neurological exam: Alert, Oriented x3 - Psychiatric Exam Psychiatric exam: Normal Affect, Normal Mood - Skin Skin Exam: Dry, Intact, Warm Discharge Plan - Discharge Medications Prescriptions: Albuterol HFA [Ventolin HFA 90 mcg/actuation (8 g)] 2 puff IH [id number] PRN #1 i nhaler PRN Reason: Shortness Of Breath Benzonatate [Tessalon Perle] 100 mg PO DAILY #14 capsule Budesonide [Pulmicort Flexhaler] 90 mcg IH BID #1 inhaler Pantoprazole [Protonix EC Tab] 40 mg PO DAILY #7 ect predniSONE [predniSONE Tab] See Taper PO DAILY #16 tab - Follow Up Plan Condition: STABLE Disposition: HOME/ ROUTINE Instructions: Smoking: Not Just Harmful to Your Lungs and Heart, Asthma, Adult (DC), Quitting Smoking, Cardioversion (DC), Asthma (DC), Asthma (GEN) Additional Instructions: Please follow up with your primary medical doctor within 3-5 days Please refrain from smoking Return to the nearest ED if symptoms return or worsen Maintain adequate hydration because your muscle enzyme was slightly elevated, possibly from the asthma exacerbation You have been started on these new medications: Asmanex inhaler: Please inhale 2 puffs twice a day every day Tessalon Perles: Please take 1 tablet by mouth every day for cough Prednisone: Please take this medication as instructed on the label instructions Pantoprazole: Please take this medication while you are taking prednisone. Please continue using your Albuterol inhaler for shortness of breath <Nabila Will - Last Filed: 07/11/18 16:28> Provider - Provider Date of Admission: 07/11/18 00:09 Attending physician: Nabila Will MD Hospital Course - Lab Results Lab Results: Most Recent Lab Values WBC 10.6 10^3/uL (4.5-11.0) D 07/10/18 23:10 RBC 4.82 10^6/uL (3.5-6.1) 07/10/18 23:10 Hgb 13.3 g/dL (12.0-16.0) 07/10/18 23:10 Hct 39.7 % (36.0-48.0) 07/10/18 23:10 MCV 82.4 fl (80.0-105.0) 07/10/18 23:10 MCH 27.6 pg (25.0-35.0) 07/10/18 23:10 MCHC 33.5 g/dl (31.0-37.0) 07/10/18 23:10 RDW 13.1 % (11.5-14.5) 07/10/18 23:10 Plt Count 263 10^3/uL (120.0-450.0) 07/10/18 23:10 MPV 10.7 fl (7.0-11.0) 07/10/18 23:10 Neut % (Auto) 48.0 % (50.0-68.0) L 07/10/18 23:10 Lymph % (Auto) 40.8 % (22.0-35.0) H 07/10/18 23:10 Desha % (Auto) 6.5 % (1.0-6.0) H 07/10/18 23:10 Eos % (Auto) 4.5 % (1.5-5.0) 07/10/18 23:10 Baso % (Auto) 0.2 % (0.0-3.0) 07/10/18 23:10 Lymph # (Auto) 4.3 (1.2-3.4) H 07/10/18 23:10 Desha # (Auto) 0.7 (0.1-0.6) H 07/10/18 23:10 Eos # (Auto) 0.5 (0.0-0.7) 07/10/18 23:10 Baso # (Auto) 0.02 K/mm3 (0.0-2.0) 07/10/18 23:10 Absolute Neuts (auto) 5.09 (1.4-6.5) 07/10/18 23:10 Sodium 139 mmol/L (132-148) 07/10/18 23:10 Potassium 3.3 mmol/L (3.6-5.0) L 07/10/18 23:10 Chloride 105 mmol/L (98-107) 07/10/18 23:10 Carbon Dioxide 24 mmol/L (21-33) 07/10/18 23:10 Anion Gap 13 (10-20) 07/10/18 23:10 BUN 7 mg/dL (7-21) 07/10/18 23:10 Creatinine 0.5 mg/dl (0.7-1.2) L 07/10/18 23:10 Est GFR ( Amer) > 60 07/10/18 23:10 Est GFR (Non-Af Amer) > 60 07/10/18 23:10 Random Glucose 94 mg/dL (70-110) 07/10/18 23:10 Calcium 9.0 mg/dL (8.4-10.5) 07/10/18 23:10 Magnesium 2.0 mg/dL (1.7-2.2) 07/11/18 00:00 Lactate Dehydrogenase 568 U/L (333-699) 07/11/18 05:00 Total Creatine Kinase 291 U/L (35-230) H 07/11/18 05:00 CK-MB (CK-2) 0.7 ng/mL (0.0-3.6) 07/11/18 05:00 CK-MB (CK-2) % Cancelled 07/11/18 05:00 Troponin I < 0.01 ng/mL 07/11/18 05:00 Attending/Attestation - Attestation I have personally seen and examined this patient.: Yes I have fully participated in the care of the patient.: Yes I have reviewed all pertinent clinical information, including history, physical exam and plan: Yes Notes (Text): 07/11/18 16:26 Medical record note made by the resident after discussion with my direction and input after the patient was personally seen and examined by me. I have reviewed the chart and agree that the record accurately reflects by personal performance of the history, physical exam, data review, and medical decision-making, in the course for the patient. I have also personally directed the plan of care. 23 year old female with past medical history of Mild Persistent asthma was admitted with acute asthma exacerbation. She has responded well to Broncho dilator and steroid. She is on room air and is ambulatory. She will be discharged home on tapering dose of prednisone, budesonide inhaler and albuterol inhaler. She will follow up with [facility]. Management plan was discussed in detail with patient. Education was provided.
--- NOTE | 2018-07-11 13:59 | RAD ---
Date of service: 07/11/2018 HISTORY: Shortness of breath COMPARISON: 08/18/2017. TECHNIQUE: Chest PA and lateral FINDINGS: LINES AND TUBES: None. LUNG AND PLEURA: The lungs are well inflated. There are streaky opacities in the lungs with patchy airspace disease in both mid lungs. Cough no pleural effusion or pneumothorax. HEART AND MEDIASTINUM: The heart is not enlarged. No aortic atherosclerotic calcifications present. The hilar and mediastinal contours are within normal limits. SKELETAL STRUCTURES: The bony structures are within normal limits for the patient's age. VISUALIZED UPPER ABDOMEN: Normal. OTHER FINDINGS: None. IMPRESSION: Patchy airspace disease in both lungs may represent multifocal pneumonia/atelectasis. Follow-up after medical management is recommended to ensure complete resolution.
--- NOTE | 2018-07-11 14:53 | CARD ---
APPROVED REPORT Date of service: 07/10/2018 EKG Measurement Heart [id number] <Conclusion> Normal sinus rhythm Normal ECG
== END 2018-07-11 14:47 | disposition home or self-care (01) ==
LOC: ED 21:08 → ERH 07-11 00:09 → 3RSO 07-11 04:25
PROVIDERS: ADMIT Internal Medicine; ATTEND Internal Medicine
DX: J45.31 Mild persistent asthma with (acute) exacerbation (principal); F17.210 Nicotine dependence, cigarettes, uncomplicated; Z82.5 Family history of asthma and other chronic lower respiratory diseases; Z88.0 Allergy status to penicillin; Z87.892 Personal history of anaphylaxis; E66.9 Obesity, unspecified; Z68.38 Body mass index [BMI] 38.0-38.9, adult; R00.0 Tachycardia, unspecified
CPT/HCPCS: 36415; 71046; 80048; 81025; 82550; 82553; 83615; 83735; 84484; 85025; 93005; 94640; 94760; 99283; G0378; J2930; J7030